=== PATIENT | male | born 1965 | race Hispanic/Latino ===

== ENCOUNTER 2022-07-23 17:35 | Emergency (ER) | payer OTHER ==
[~2022-07-23] VITALS: Ht 172.7 cm; Wt 130.6 kg
[2022-07-23 18:22] LABS: BASOPHILS % (AUTO) 0.5 % (0.0-5.0); EOSINOPHILS % (AUTO) 1.7 % (0.0-8.0); LYMPHOCYTES % (AUTO) 23.8 % (21.0-51.0); MEAN CORPUSCULAR HEMOGLOBIN 27.6 pg (27.0-33.0); MEAN CORPUSCULAR HGB CONC 32.5 g/dL (32.0-36.0); NEUTROPHILS % (AUTO) 67.7 % (40.0-77.0); PLATELET COUNT (AUTO) 251 K/uL (130-400); RED BLOOD CELL COUNT(AUTO) 5.65 MIL/uL (4.50-6.20); RED CELL DISTRIBUTION WIDTH 14.5 % (11.0-15.5); WHITE BLOOD COUNT (AUTO) 9.8 K/uL (4.8-10.8)
[2022-07-23 18:38] LABS: POTASSIUM 4.1 mmol/L (3.5-5.1)
[2022-07-23 18:47] LABS: ALBUMIN 3.2 g/dL (3.5-5.0); MAGNESIUM 1.7 mg/dL (1.80-2.40); TOTAL PROTEIN, SERUM 7.1 g/dL (6.0-8.3)
[2022-07-23 21:30] VITALS: BP 132/82
== END 2022-07-23 21:41 | disposition home or self-care (01) ==
LOC: EDH 17:35
DX: F43.0 Acute stress reaction (principal); F41.9 Anxiety disorder, unspecified; R07.89 Other chest pain; E11.9 Type 2 diabetes mellitus without complications; J44.9 Chronic obstructive pulmonary disease, unspecified; F17.200 Nicotine dependence, unspecified, uncomplicated
CPT/HCPCS: 36415; 71045; 80053; 83735; 84484; 85025; 93005